=== PATIENT | female | born 1965 | race Caucasian/White ===

== ENCOUNTER 2018-05-26 20:39 | Emergency (ER) | payer OTHER ==
[2018-05-26] MEDS ORDERED: Acetaminophen 500 MG TAB ONE (21:23)
[2018-05-26] MEDS ORDERED: HYDROcodone/Acetaminophen 5/325 mg Tablet ONE (21:23)
[2018-05-26] MEDS ORDERED: Ibuprofen 800 MG TAB ONE (21:23)
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
== END 2018-05-26 21:51 | disposition home or self-care (01) ==
LOC: SCSER 20:39
DX: S62.347A Nondisplaced fracture of base of fifth metacarpal bone, left hand, initial encounter for closed fracture (principal); S86.911A Strain of unspecified muscle(s) and tendon(s) at lower leg level, right leg, initial encounter; S60.222A Contusion of left hand, initial encounter; F90.9 Attention-deficit hyperactivity disorder, unspecified type; F17.210 Nicotine dependence, cigarettes, uncomplicated; Z79.899 Other long term (current) drug therapy; V89.2XXA Person injured in unspecified motor-vehicle accident, traffic, initial encounter